=== PATIENT | male | born 1955 | race Caucasian/White ===

== ENCOUNTER → 2017-10-23 | Outpatient (CLI) | payer OTHER ==
[~2017-10-23] MED LIST: ASPIRIN 81M81 MG/TA2 PO; CARAFATE 1GM1 G PO; CELEXA10 MG PO; GLUCOPHAGE500 MG/TAB PO; HCTZ12.5TAB PO; NORFLEX 10100 MG/TAB PO; PROTONIX20 MG PO; TOPROL XL 25MG25 MG PO; XANAX 0.5MG0.5 MG PO; ZESTRIL30 MG PO
== END ==
LOC: COL.RAD 08:40
DX: M25.511 Pain in right shoulder (principal)
CPT/HCPCS: A9585; Q9967

== ENCOUNTER 2017-12-07 09:36 | Emergency (ER) | payer OTHER ==
[~2017-12-07] VITALS: Ht 190.5 cm; Wt 150.0 kg
[2017-12-07 09:39] VITALS: PULSE 100; TEMP 98.1
[2017-12-07 11:05] LABS: BASO # 0.1 (0.0-0.2); BASO % 0.8 % (0.0-2.0); EOS # 0.1 (0.0-0.7); EOS % 1.4 % (0-4.0); GRAN # 4.6 (1.4-6.5); HEMATOCRIT 48.4 % (42.0-52.0); HEMOGLOBIN 16.4 g/dl (13.5-18.0); LYMPH # 1.9 (1.2-3.4); LYMPH % 26.7 % (20.0-51.0); MEAN CELL VOLUME 89 fl (80.0-100.0); MEAN CORPUSCULAR HEMOGLOBIN 30 pg (27.0-31.0); MEAN CORPUSCULAR HGB CONC 34 g/dl (33.0-37.0); MEAN PLATELET VOLUME 9.6 fl (7.4-10.4); MONO # 0.5 (0.1-0.6); MONO % 6.8 % (1.7-9.3); PLATELET COUNT 202 K/mm3 (130-400); RED BLOOD COUNT 5.43 M/mm3 (4.20-5.60); REDCELL DISTRIBUTION WIDTH-CV 12.7 % (11.5-14.5)
[2017-12-07 11:14] LABS: ALBUMIN 4.4 gm/dL (3.5-5.0); BILIRUBIN,TOTAL 1.8 mg/dL (0.0-1.0); CALCIUM 9.3 mg/dL (8.4-10.2); CREATININE, serum 0.93 mg/dL (0.66-1.25); POTASSIUM 4.3 mmol/L (3.4-5.0)
[2017-12-07 11:26] VITALS: BP 124/78
== END 2017-12-07 11:47 | disposition home or self-care (01) ==
LOC: COL.ER 09:36
PROVIDERS: Physician Assistant
DX: E11.9 Type 2 diabetes mellitus without complications (principal); I10 Essential (primary) hypertension; F41.9 Anxiety disorder, unspecified; F32.9 Major depressive disorder, single episode, unspecified; Z79.84 Long term (current) use of oral hypoglycemic drugs

== ENCOUNTER 2017-12-13 09:12 | Outpatient (RCR) | payer OTHER | END 2017-12-13 11:38 | disposition home or self-care (01) | LOC: WSOH 09:12 | DX: M75.111 Incomplete rotator cuff tear or rupture of right shoulder, not specified as traumatic (principal); Z79.84 Long term (current) use of oral hypoglycemic drugs; W10.9XXA Fall (on) (from) unspecified stairs and steps, initial encounter; Y99.0 Civilian activity done for income or pay | CPT/HCPCS: G0283-GP ==

== ENCOUNTER 2019-05-08 12:46 | Outpatient (RCR) | payer OTHER | END 2019-08-06 | disposition home or self-care (01) | LOC: WSOH | DX: T67.5XXA Heat exhaustion, unspecified, initial encounter (principal); Y92.59 Other trade areas as the place of occurrence of the external cause; Y99.0 Civilian activity done for income or pay; Z79.899 Other long term (current) drug therapy; Z87.891 Personal history of nicotine dependence; I10 Essential (primary) hypertension; E11.21 Type 2 diabetes mellitus with diabetic nephropathy; F32.9 Major depressive disorder, single episode, unspecified; K21.9 Gastro-esophageal reflux disease without esophagitis; Z79.82 Long term (current) use of aspirin; E11.9 Type 2 diabetes mellitus without complications; Z79.84 Long term (current) use of oral hypoglycemic drugs ==

== ENCOUNTER 2019-08-28 10:12 | Emergency (ER) | payer OTHER ==
[~2019-08-28] VITALS: Ht 190.5 cm; Wt 145.5 kg
[2019-08-28 10:43] LABS: BASO # 0.1 (0.0-0.2); BASO % 0.8 % (0.0-2.0); EOS # 0.3 (0.0-0.7); EOS % 2.2 % (0-4.0); GRAN # 5.8 (1.4-6.5); GRAN % 51.7 % (42.2-75.2); HEMATOCRIT 49.3 % (42.0-52.0); HEMOGLOBIN 16.5 g/dl (13.5-18.0); LYMPH # 4.2 (1.2-3.4); LYMPH % 37.4 % (20.0-51.0); MEAN CELL VOLUME 89 fl (80.0-100.0); MEAN CORPUSCULAR HEMOGLOBIN 30 pg (27.0-31.0); MEAN CORPUSCULAR HGB CONC 34 g/dl (33.0-37.0); MEAN PLATELET VOLUME 9.5 fl (7.4-10.4); MONO # 0.8 (0.1-0.6); MONO % 7.5 % (1.7-9.3); PLATELET COUNT 230 K/mm3 (130-400); RED BLOOD COUNT 5.56 M/mm3 (4.20-5.60); REDCELL DISTRIBUTION WIDTH-CV 12.8 % (11.5-14.5)
[2019-08-28 10:48] LABS: INR 1.1 (0.8-3.0); PROTHROMBIN TIME 13.3 SECONDS (9.7-12.8)
[2019-08-28 10:51] LABS: PARTIAL THROMBOPLASTIN TIME 32.8 SECONDS (26.0-37.0)
[2019-08-28 10:52] LABS: ALANINE AMINOTRANSFERASE 115 U/L (21-72); ALBUMIN 4.6 gm/dL (3.5-5.0); ALKALINE PHOSPHATASE 81 U/L (50-136); ANION GAP 10 mmol/L (7-16); AST,SGOT 83 U/L (15-37); BILIRUBIN,TOTAL 1.6 mg/dL (0.0-1.0); BLOOD UREA NITROGEN 15 mg/dL (9-20); CALCIUM 9.5 mg/dL (8.4-10.2); CARBON DIOXIDE 25 mmol/L (22-30); CHLORIDE 102 mmol/L (98-107); GLUCOSE 150 mg/dL (74-106); SODIUM 138 mmol/L (137-145); TOTAL PROTEIN 8.5 gm/dL (6.4-8.2)
[2019-08-28 11:05] LABS: TROPONIN-I < 0.012 ng/mL (0.000-0.035)
[2019-08-28] MEDS ORDERED: HCTZ 25MG TAB25 MG PO (12:55)
[2019-08-28] MEDS ORDERED: DULCOLAX STOOL100 MG PO (12:55)
[2019-08-28] MEDS ORDERED: PROSCAR 5MG5 MG PO (12:56)
[2019-08-28] MEDS ORDERED: PRAVACHOL 40MG40 MG PO (12:57)
[2019-08-28] MEDS ORDERED: GLUCOPHAGE500 MG/TAB PO (12:58)
[2019-08-28] MEDS ORDERED: PROAIR HFA0.09 MG/AC IH (12:59)
[2019-08-28] MEDS ORDERED: ASTELIN NASAL S34 ML NS (12:59)
[2019-08-28] MEDS ORDERED: PEPCID40 MG PO (13:00)
[2019-08-28 13:16] VITALS: BP 141/92; PULSE 101
== END 2019-08-28 13:30 | disposition home or self-care (01) ==
LOC: COL.ER 10:12
PROVIDERS: Family Medicine
DX: F41.9 Anxiety disorder, unspecified (principal); E11.9 Type 2 diabetes mellitus without complications; I10 Essential (primary) hypertension; Z79.82 Long term (current) use of aspirin; Z79.84 Long term (current) use of oral hypoglycemic drugs
CPT/HCPCS: J2060; J2405; J7030; Q9967

== ENCOUNTER 2020-02-19 09:27 | Emergency (ER) | payer OTHER ==
[~2020-02-19] VITALS: Ht 190.5 cm; Wt 145.5 kg
[~2020-02-19 09:27] MED LIST changes: +ASTELIN NASAL S34 ML NS; +DULCOLAX STOOL100 MG PO; +HCTZ 25MG TAB25 MG PO; +PEPCID40 MG PO; +PRAVACHOL 40MG40 MG PO; +PROAIR HFA0.09 MG/AC IH; +PROSCAR 5MG5 MG PO
[2020-02-19 09:38] VITALS: TEMP 98.2
[2020-02-19 09:56] LABS: BASO # 0.1 (0.0-0.2); BASO % 0.7 % (0.0-2.0); EOS # 0.2 (0.0-0.7); GRAN # 4.5 (1.4-6.5); GRAN % 50.3 % (42.2-75.2); HEMATOCRIT 47.9 % (42.0-52.0); HEMOGLOBIN 15.9 g/dl (13.5-18.0); LYMPH # 3.6 (1.2-3.4); LYMPH % 39.6 % (20.0-51.0); MEAN CELL VOLUME 87 fl (80.0-100.0); MEAN CORPUSCULAR HEMOGLOBIN 29 pg (27.0-31.0); MEAN CORPUSCULAR HGB CONC 33 g/dl (33.0-37.0); MEAN PLATELET VOLUME 9.8 fl (7.4-10.4); MONO # 0.6 (0.1-0.6); MONO % 7.1 % (1.7-9.3); PLATELET COUNT 233 K/mm3 (130-400); RED BLOOD COUNT 5.52 M/mm3 (4.20-5.60); REDCELL DISTRIBUTION WIDTH-CV 13.2 % (11.5-14.5)
[2020-02-19 10:05] LABS: ALANINE AMINOTRANSFERASE 78 U/L (4-49); ALBUMIN 4.5 gm/dL (3.5-5.0); ALKALINE PHOSPHATASE 68 U/L (50-136); ANION GAP 10 mmol/L (7-16); AST,SGOT 57 U/L (15-37); BILIRUBIN,TOTAL 1.8 mg/dL (0.0-1.0); BLOOD UREA NITROGEN 17 mg/dL (9-20); CALCIUM 9.6 mg/dL (8.4-10.2); CARBON DIOXIDE 25 mmol/L (22-30); CHLORIDE 102 mmol/L (98-107); CREATININE, serum 0.95 (0.66-1.25); GLUCOSE 161 mg/dL (74-106); SODIUM 137 mmol/L (137-145); TOTAL PROTEIN 8.2 gm/dL (6.4-8.2)
[2020-02-19 10:06] LABS: INR 1.1 (0.8-3.0); PROTHROMBIN TIME 12.9 SECONDS (9.7-12.8)
[2020-02-19 10:09] LABS: PARTIAL THROMBOPLASTIN TIME 32.7 SECONDS (26.0-37.0)
[2020-02-19 10:59] LABS: TROPONIN-I < 0.012 ng/mL (0.000-0.035)
[2020-02-19 13:30] VITALS: BP 125/70; PULSE 77
== END 2020-02-19 13:30 | disposition home or self-care (01) ==
LOC: COL.ER 09:27
PROVIDERS: Family Medicine
DX: F41.9 Anxiety disorder, unspecified (principal); R07.9 Chest pain, unspecified; I10 Essential (primary) hypertension; Z79.82 Long term (current) use of aspirin; Z79.84 Long term (current) use of oral hypoglycemic drugs
CPT/HCPCS: J2060

== ENCOUNTER 2020-09-08 14:46 | Emergency (ER) | payer OTHER ==
[~2020-09-08] VITALS: Ht 190.5 cm; Wt 150.0 kg
[2020-09-08 15:57] LABS: HEMOGLOBIN 17.6 g/dl (13.5-18.0); MEAN CELL VOLUME 86 fl (80.0-100.0); MEAN CORPUSCULAR HEMOGLOBIN 29 pg (27.0-31.0); MEAN CORPUSCULAR HGB CONC 34 g/dl (33.0-37.0); PLATELET COUNT 268 K/mm3 (130-400); RED BLOOD COUNT 6.05 M/mm3 (4.20-5.60); REDCELL DISTRIBUTION WIDTH-CV 13.1 % (11.5-14.5)
[2020-09-08 16:02] LABS: ALANINE AMINOTRANSFERASE 77 U/L (4-49); ALKALINE PHOSPHATASE 95 U/L (50-136); ANION GAP 13 mmol/L (7-16); AST,SGOT 93 U/L (15-37); BILIRUBIN,TOTAL 2.1 mg/dL (0.0-1.0); BLOOD UREA NITROGEN 15 mg/dL (9-20); CALCIUM 9.8 mg/dL (8.4-10.2); CARBON DIOXIDE 24 mmol/L (22-30); CHLORIDE 101 mmol/L (98-107); CREATININE, serum 0.97 (0.66-1.25); GLUCOSE 112 mg/dL (74-106); POTASSIUM 3.7 mmol/L (3.4-5.0); SODIUM 137 mmol/L (137-145); TOTAL PROTEIN 8.8 gm/dL (6.4-8.2)
[2020-09-08 16:19] LABS: HEMATOCRIT 52.1 % (42.0-52.0)
[2020-09-08 16:23] LABS: TROPONIN-I < 0.012 ng/mL (0.000-0.035)
[2020-09-08 17:13] LABS: EOSINOPHIL 2 % (0-4); LYMPHOCYTE 45 % (20.0-51.0); NEUTROPHILS 46 % (42.0-75.2)
[2020-09-08 17:18] LABS: PLATELET ESTIMATE NORMAL (NORMAL); TOXIC GRANULATION PRESENT
[2020-09-08 17:21] VITALS: BP 132/81; PULSE 94
== END 2020-09-08 17:15 | disposition home or self-care (01) ==
LOC: COL.ER 14:46
PROVIDERS: Nurse Practitioner
DX: I10 Essential (primary) hypertension (principal); Z98.61 Coronary angioplasty status; Z87.891 Personal history of nicotine dependence; Z79.82 Long term (current) use of aspirin; Z79.84 Long term (current) use of oral hypoglycemic drugs

== ENCOUNTER → 2020-10-21 | Outpatient (CLI) | payer OTHER | LOC: COL.RAD 07:16 | DX: K76.0 Fatty (change of) liver, not elsewhere classified (principal) ==

== ENCOUNTER → 2020-12-15 | Outpatient (CLI) | payer OTHER ==
[~2020-12-15] MED LIST changes: +CATAPRES 0.1MG0.1 MG PO; +INDERAL 20MG20 MG PO; +PRILOSEC 20MG20 MG PO; +PRINIVIL40 MG PO; +UBRELVY50 MG PO
== END ==
LOC: COL.RAD 06:54
DX: N20.0 Calculus of kidney (principal); K76.0 Fatty (change of) liver, not elsewhere classified; K57.30 Diverticulosis of large intestine without perforation or abscess without bleeding

== ENCOUNTER 2021-01-21 06:41 | Emergency (ER) | payer OTHER ==
[~2021-01-21] VITALS: Ht 193 cm; Wt 137.3 kg
[~2021-01-21 06:41] MED LIST changes: -CATAPRES 0.1MG0.1 MG PO; -INDERAL 20MG20 MG PO; -PRILOSEC 20MG20 MG PO; -PRINIVIL40 MG PO; -UBRELVY50 MG PO
[2021-01-21 06:45] VITALS: TEMP 97.4
[2021-01-21 06:57] LABS: COLLECTION METHOD CLEAN CATCH
[2021-01-21 07:03] LABS: MUCOUS Present /lpf; PH 5 (5-8); SQUAMOUS EPITHELIAL 0-2 /hpf; URINE APPEARANCE Clear; URINE BACTERIA None Seen /hpf; URINE BILIRUBIN Negative (NEGATIVE); URINE BLOOD Negative (NEGATIVE); URINE COLOR Yellow; URINE GLUCOSE Negative (NEGATIVE); URINE KETONE Negative (NEGATIVE); URINE LEUKOCYTE ESTERASE Negative (NEGATIVE); URINE NITRATE Negative (NEGATIVE); URINE PROTEIN(semi-quant) Negative (NEGATIVE); URINE RBC 0-2 /hpf; URINE UROBILINOGEN Negative (NEGATIVE)
[2021-01-21 07:07] LABS: BASO # 0.1 (0.0-0.2); BASO % 0.5 % (0.0-2.0); EOS # 0.1 (0.0-0.7); EOS % 1.3 % (0-4.0); GRAN # 3.9 (1.4-6.5); GRAN % 43.1 % (42.2-75.2); HEMOGLOBIN 17.1 g/dl (13.5-18.0); LYMPH # 4.4 (1.2-3.4); LYMPH % 47.7 % (20.0-51.0); MEAN CELL VOLUME 88 fl (80.0-100.0); MEAN CORPUSCULAR HEMOGLOBIN 29 pg (27.0-31.0); MEAN CORPUSCULAR HGB CONC 33 g/dl (33.0-37.0); MEAN PLATELET VOLUME 9.7 fl (7.4-10.4); MONO # 0.7 (0.1-0.6); MONO % 7.2 % (1.7-9.3); PLATELET COUNT 209 K/mm3 (130-400); RED BLOOD COUNT 5.91 M/mm3 (4.20-5.60)
[2021-01-21 07:08] LABS: HEMATOCRIT 52.1 % (42.0-52.0)
[2021-01-21 07:17] LABS: ALBUMIN 4.5 gm/dL (3.5-5.0); BILIRUBIN,TOTAL 1.7 mg/dL (0.0-1.0); CALCIUM 9.6 mg/dL (8.4-10.2); CREATININE, serum 1.14 (0.66-1.25); POTASSIUM 4.1 mmol/L (3.4-5.0); TOTAL PROTEIN 8.6 gm/dL (6.4-8.2)
[2021-01-21 09:00] VITALS: BP 137/89; PULSE 87
== END 2021-01-21 09:18 | disposition home or self-care (01) ==
LOC: COL.ER 06:41
PROVIDERS: Emergency Medicine
DX: M54.9 Dorsalgia, unspecified (principal); I10 Essential (primary) hypertension; R10.9 Unspecified abdominal pain; R11.0 Nausea; Z87.442 Personal history of urinary calculi; Z79.82 Long term (current) use of aspirin; Z79.84 Long term (current) use of oral hypoglycemic drugs
CPT/HCPCS: J2270; J2405; Q9967

== ENCOUNTER 2021-01-27 15:10 | Observation (INO) | payer OTHER ==
[~2021-01-27] VITALS: Ht 193.1 cm; Wt 131.0 kg
[2021-01-27 15:34] VITALS: BP 112/77; PULSE 71; TEMP 97.5
[2021-01-27] MEDS ORDERED: CATAPRES 0.1MG0.1 MG PO (15:41)
[2021-01-27] MEDS ORDERED: PRINIVIL40 MG PO (15:43)
--- NOTE | 2021-01-27 15:45 | NUR ---
PT ARRIVED TO FLOOR, VITAL SIGNS OBTAINED, PT AOX4, PT PLEASANT, DENIES CHEST PAIN AT THIS TIME, REPORTS HE HAS "EPISODES" OF CHEST PAIN WITH ELEVATED BLOOD PRESSURE. HE STATES "I ALSO GET SUPER DIZZY AND IT FEELS LIKE MY HEAD IS GOING TO EXPLODE". PT STATED HE TOOK MULTIPLE DOSES OF CLONIDINE TODAY AND A BETA BASILIA. PT BP IS WITHIN NORMAL LIMITS AT THIS TIME. CALL LIGHT TAKEN INTO ROOM.
[2021-01-27] MEDS ORDERED: GLUCOPHAGE500 MG/TAB PO (16:58)
[2021-01-27] MEDS ORDERED: INDERAL 20MG20 MG PO (17:00)
[2021-01-27] MEDS ORDERED: UBRELVY50 MG PO (17:01)
[2021-01-27] MEDS ORDERED: PRILOSEC 20MG20 MG PO (17:01)
[2021-01-27 17:46] VITALS: BP 123/75; PULSE 64
[2021-01-27 17:56] LABS: BASO # 0.1 (0.0-0.2); BASO % 0.5 % (0.0-2.0); EOS # 0.2 (0.0-0.7); EOS % 1.4 % (0-4.0); GRAN # 5.2 (1.4-6.5); HEMATOCRIT 50.8 % (42.0-52.0); HEMOGLOBIN 16.6 g/dl (13.5-18.0); LYMPH # 4.7 (1.2-3.4); LYMPH % 43.6 % (20.0-51.0); MEAN CELL VOLUME 90 fl (80.0-100.0); MEAN CORPUSCULAR HEMOGLOBIN 29 pg (27.0-31.0); MEAN CORPUSCULAR HGB CONC 33 g/dl (33.0-37.0); MEAN PLATELET VOLUME 9.8 fl (7.4-10.4); MONO # 0.7 (0.1-0.6); MONO % 6.3 % (1.7-9.3); PLATELET COUNT 219 K/mm3 (130-400); RED BLOOD COUNT 5.67 M/mm3 (4.20-5.60); REDCELL DISTRIBUTION WIDTH-CV 13.2 % (11.5-14.5)
[2021-01-27 17:59] VITALS: BP 111/77; PULSE 62
[2021-01-27 18:02] LABS: INR 1.2 (0.8-3.0); PROTHROMBIN TIME 13.7 SECONDS (9.7-12.8)
[2021-01-27 18:06] LABS: ALANINE AMINOTRANSFERASE 70 U/L (4-49); ALBUMIN 4.5 gm/dL (3.5-5.0); ALKALINE PHOSPHATASE 66 U/L (50-136); ANION GAP 8 mmol/L (7-16); AST,SGOT 49 U/L (15-37); BILIRUBIN,TOTAL 1.2 mg/dL (0.0-1.0); BLOOD UREA NITROGEN 16 mg/dL (9-20); CALCIUM 9.4 mg/dL (8.4-10.2); CARBON DIOXIDE 28 mmol/L (22-30); CHLORIDE 100 mmol/L (98-107); CREATININE, serum 1.07 (0.66-1.25); GLUCOSE 95 mg/dL (74-106); MAGNESIUM 2.1 mg/dL (1.6-2.3); POTASSIUM 4.1 mmol/L (3.4-5.0); SODIUM 136 mmol/L (137-145); TOTAL PROTEIN 8.5 gm/dL (6.4-8.2)
--- NOTE | 2021-01-27 18:14 | NUR ---
Pt. sitting in bed with at bedside.Pt states he is currently not experiencing chest pain.Pt. placed on interval B/P monitoring, tele monitoring, Nurse placed 20G IV on right a/c,conducted medication rec. nurse informed patient of possible stress test tomorrow morning (01/28/2021) and provided necessary relevant education. Pt. expressses no further needs. Call light within reach. Informed pt. to call if he needs to transfer.
[2021-01-27 18:23] LABS: TROPONIN-I < 0.012 ng/mL (0.000-0.035)
--- NOTE | 2021-01-27 19:03 | NUR ---
Received report from Anastasiia. Patient awake in bed, at bedside.
[2021-01-27 20:52] VITALS: BP 98/53; PULSE 64; TEMP 97.8
--- NOTE | 2021-01-27 21:05 | NUR ---
Assesment done. Patient is alert and oriented. He is on room air. Instructed him that he is NPO by midnight for his procedure in the morning. He verbalizes understanding. He reports having pain of 3/10 on his left shoulder blade. He do have indigestion and states he needs Xanax for his anxiety. Maalox, Flexeril and Xanax were given.
[2021-01-28] VITALS (15 sets, daily range): BP systolic 91–143; BP diastolic 61–80; PULSE 59–141; TEMP 97.6–98.2
--- NOTE | 2021-01-28 02:37 | NUR ---
Patient called saying he usually use CPAP at night and now he's having a hard time sleeping. He complains of having dry mouth due to being on NPO. Provided oral swab to help with dry mouth. Placed O2 at 2lpm to use while asleep since there's no CPAP. Informed RT.
[2021-01-28 06:11] LABS: CHOLESTEROL 118 mg/dL (120-200); CHOLESTEROL RISK RATIO 4.5; HDL CHOLESTEROL 26 mg/dL; LDL CHOLESTEROL 69 mg/dL; TRIGLYCERIDE 116 mg/dL
[2021-01-28 06:20] LABS: TROPONIN-I < 0.012 ng/mL (0.000-0.035)
--- NOTE | 2021-01-28 06:34 | NUR ---
CPAP was provided to patient. He had episodes of soft blood pressure. Latest blood pressure is 120/72. He was complaining of headache this morning. Tylenol was given.
--- NOTE | 2021-01-28 08:20 | NUR ---
PT PLEASANT, REPORTED NOT SLEEPING WELL DUE TO "WAKING UP EVERY 30 MINUTES FEELING LIKE I COULDN'T BREATH". PT NORMALLY WEARS CPAP AT HOME FOR SLEEP APNEA, CPAP BROUGHT TO ROOM AROUND 4AM. PT HAD SOFT PRESSURES IN THE NIGHT, ISSUE HAS RESOLVED. PT AOX4, REPORTS SOME SHOULDER BLADE DISCOMFORT 2/10, REPORTS HE'D NORMALLY TAKE A MUSCLE RELAXER BUT REFUSED THE FLEXERIL OFFERED. PT REPORTS HEADACHE 4/10 THAT HAD NOT RESOLVED WITH TYLENOL. TELE ON PT, CALL LIGHT WITHIN REACH, PT REFUSED NASAL SPRAY DUE TO "FEELING LIKE MY SINUSES ARE FINE TODAY". EDUCATED HIM TO NOTIFY NURSING STAFF IF CHEST PAIN DEVELOPS. PT USING URINAL AT BEDSIDE, NO OTHER NEEDS.
--- NOTE | 2021-01-28 08:54 | NUR ---
PT TAKEN DOWN FOR STRESS TEST
--- NOTE | 2021-01-28 10:59 | NUR ---
PT RETURNED FROM [facility] [address] ON PT, PT TEARFUL ABOUT HIS MOTHER'S RECENT PASSING, PT NOT REPORTING CHEST PAIN AT THIS TIME.
--- NOTE | 2021-01-28 13:45 | NUR ---
PT USED CALL LIGHT TO REPORT L ARM SHARP PAIN 4/10 AND PT HAS HEAD POUNDING AND DIZZINESS. VITALS TAKEN AND WITHIN NORMAL LIMITS.
--- NOTE | 2021-01-28 13:59 | NUR ---
DR ARREOLA NOTIFIED OF PT SYMPTOMS, STILL OK WITH DISCHARGE. GAVE PT A XANAX, WILL REASSESS SITUATION, NOTIFIED PT TO NOTIFY STAFF IF SYMPTOMS WORSEN.
--- NOTE | 2021-01-28 14:13 | NUR ---
RECIEVED CALL FROM TELEMETRY SAYING PT HR INC INTO 130'S. ENTERED PT ROOM AND PT WAS MOVING TO GET INTO THE CHAIR. HE SAID HEADACHE IS RESOLVING AND SO IS SHOULDER PAIN. HR 120/76 AND HR WAS 114 AT TIME OF VITALS.
--- NOTE | 2021-01-28 15:13 | NUR ---
Pt. discharge processed. Pt. Iv line DC'd, education and discharge instructions provided. Patient understands instruction. Pt. transferred to vehicle by nurse.
== END 2021-01-28 15:15 | disposition home or self-care (01) ==
LOC: MEDICAL 15:10
PROVIDERS: Physician Assistant; ADMIT Family Medicine
DX: R07.9 Chest pain, unspecified (principal); I10 Essential (primary) hypertension; E11.9 Type 2 diabetes mellitus without complications; K21.9 Gastro-esophageal reflux disease without esophagitis; E78.5 Hyperlipidemia, unspecified; M19.90 Unspecified osteoarthritis, unspecified site; G43.909 Migraine, unspecified, not intractable, without status migrainosus; G89.29 Other chronic pain; K40.90 Unilateral inguinal hernia, without obstruction or gangrene, not specified as recurrent; N20.0 Calculus of kidney; F41.9 Anxiety disorder, unspecified; Z79.84 Long term (current) use of oral hypoglycemic drugs; Z79.899 Other long term (current) drug therapy; Z90.89 Acquired absence of other organs; Z79.82 Long term (current) use of aspirin; Z87.891 Personal history of nicotine dependence
CPT/HCPCS: A9500; G0378; J1650; J1815; J2785

== ENCOUNTER 2021-04-11 11:08 | Emergency (ER) | payer OTHER ==
[~2021-04-11] VITALS: Ht 190.5 cm; Wt 135.0 kg
[~2021-04-11 11:08] MED LIST changes: +CATAPRES 0.1MG0.1 MG PO; +INDERAL 20MG20 MG PO; +PRILOSEC 20MG20 MG PO; +PRINIVIL40 MG PO; +UBRELVY50 MG PO
[2021-04-11 11:12] VITALS: TEMP 98.3
[2021-04-11 12:04] LABS: HEMATOCRIT 50.6 % (42.0-52.0); MEAN CELL VOLUME 88 fl (80.0-100.0); MEAN CORPUSCULAR HEMOGLOBIN 30 pg (27.0-31.0); MEAN CORPUSCULAR HGB CONC 34 g/dl (33.0-37.0); PLATELET COUNT 251 K/mm3 (130-400); RED BLOOD COUNT 5.74 M/mm3 (4.20-5.60); REDCELL DISTRIBUTION WIDTH-CV 13.2 % (11.5-14.5)
[2021-04-11 12:07] LABS: INR 1.2 (0.8-3.0); PROTHROMBIN TIME 13.3 SECONDS (9.7-12.8)
[2021-04-11 12:12] LABS: ALANINE AMINOTRANSFERASE 52 U/L (4-49); ALBUMIN 4.5 gm/dL (3.5-5.0); ALKALINE PHOSPHATASE 65 U/L (50-136); ANION GAP 8 mmol/L (7-16); AST,SGOT 48 U/L (15-37); BILIRUBIN,TOTAL 1.6 mg/dL (0.0-1.0); BLOOD UREA NITROGEN 13 mg/dL (9-20); CALCIUM 9.4 mg/dL (8.4-10.2); CARBON DIOXIDE 28 mmol/L (22-30); CHLORIDE 104 mmol/L (98-107); GLUCOSE 105 mg/dL (74-106); POTASSIUM 4.2 mmol/L (3.4-5.0); SODIUM 140 mmol/L (137-145); TOTAL PROTEIN 8.1 gm/dL (6.4-8.2)
[2021-04-11 12:14] LABS: C-REACTIVE PROTEIN < 0.5 mg/dL (0.0-0.9)
[2021-04-11 12:17] LABS: BAND 10 % (0-10); LYMPHOCYTE 32 % (20.0-51.0); NEUTROPHILS 50 % (42.0-75.2); PLATELET ESTIMATE NORMAL (NORMAL)
[2021-04-11 12:25] LABS: COLLECTION METHOD CLEAN CATCH
[2021-04-11 12:32] LABS: MUCOUS Present /lpf; PH 5 (5-8); SQUAMOUS EPITHELIAL 0-2 /hpf; URINE APPEARANCE Clear; URINE BACTERIA None Seen /hpf; URINE BILIRUBIN Negative (NEGATIVE); URINE BLOOD Negative (NEGATIVE); URINE COLOR Yellow; URINE GLUCOSE Negative (NEGATIVE); URINE KETONE Negative (NEGATIVE); URINE LEUKOCYTE ESTERASE Negative (NEGATIVE); URINE NITRATE Negative (NEGATIVE); URINE PROTEIN(semi-quant) Negative (NEGATIVE); URINE RBC 0-2 /hpf
[2021-04-11 12:41] LABS: TROPONIN-I < 0.012 ng/mL (0.000-0.035)
[2021-04-11 14:23] VITALS: BP 119/79
[2021-04-11 14:35] VITALS: PULSE 70
== END 2021-04-11 14:36 | disposition home or self-care (01) ==
LOC: COL.ER 11:08
PROVIDERS: Emergency Medicine
DX: I10 Essential (primary) hypertension (principal); F41.9 Anxiety disorder, unspecified; F43.10 Post-traumatic stress disorder, unspecified; Z98.61 Coronary angioplasty status; Z87.891 Personal history of nicotine dependence; Z79.899 Other long term (current) drug therapy
CPT/HCPCS: J2060

== ENCOUNTER 2021-07-20 14:05 | Emergency (ER) | payer OTHER ==
[~2021-07-20] VITALS: Ht 190.5 cm; Wt 135.9 kg
[2021-07-20 14:17] VITALS: TEMP 98.2
[2021-07-20 14:40] LABS: BASO # 0.1 (0.0-0.2); BASO % 0.5 % (0.0-2.0); EOS # 0.1 (0.0-0.7); EOS % 1.1 % (0-4.0); GRAN # 4.2 (1.4-6.5); GRAN % 42.3 % (42.2-75.2); HEMATOCRIT 50.8 % (42.0-52.0); LYMPH # 4.9 (1.2-3.4); LYMPH % 50.3 % (20.0-51.0); MEAN CELL VOLUME 88 fl (80.0-100.0); MEAN CORPUSCULAR HEMOGLOBIN 29 pg (27.0-31.0); MEAN CORPUSCULAR HGB CONC 34 g/dl (33.0-37.0); MEAN PLATELET VOLUME 9.7 fl (7.4-10.4); MONO # 0.6 (0.1-0.6); MONO % 5.6 % (1.7-9.3); PLATELET COUNT 190 K/mm3 (130-400); RED BLOOD COUNT 5.79 M/mm3 (4.20-5.60); REDCELL DISTRIBUTION WIDTH-CV 13.4 % (11.5-14.5)
[2021-07-20 15:07] LABS: ALANINE AMINOTRANSFERASE 45 U/L (0-55); ALBUMIN 4.2 gm/dL (3.4-4.8); ALKALINE PHOSPHATASE 67 U/L (0-750); ANION GAP 11 mmol/L; AST,SGOT 37 U/L (5-34); BILIRUBIN,TOTAL 2.1 mg/dL (0.2-1.2); BLOOD UREA NITROGEN 14 mg/dL (8-26); CALCIUM 9.4 mg/dL (8.4-10.2); CARBON DIOXIDE 22 mEq/L (23-31); CHLORIDE 105 mmol/L (98-107); CREATININE, serum 0.98 mg/dL (0.72-1.25); GLUCOSE 127 mg/dL (70-99); POTASSIUM 4.2 mmol/L (3.5-4.5); SODIUM 138 mmol/L (136-145); TOTAL PROTEIN 8.2 gm/dL (6.2-8.1)
[2021-07-20 15:14] LABS: TROPONIN-I < 0.010 ng/mL (0.00-0.033)
[2021-07-20 15:55] VITALS: BP 105/48; PULSE 76
== END 2021-07-20 16:00 | disposition home or self-care (01) ==
LOC: COL.ER 14:05
PROVIDERS: Personal Emergency Response Attendant
DX: F41.9 Anxiety disorder, unspecified (principal); I10 Essential (primary) hypertension; R79.89 Other specified abnormal findings of blood chemistry; G43.909 Migraine, unspecified, not intractable, without status migrainosus; Z79.899 Other long term (current) drug therapy
CPT/HCPCS: J2060

== ENCOUNTER 2021-08-30 14:02 | Outpatient (RCR) | payer OTHER | END 2021-10-21 | disposition home or self-care (01) | LOC: WSOH | DX: M25.562 Pain in left knee (principal); M54.50 Low back pain, unspecified; I10 Essential (primary) hypertension; E78.00 Pure hypercholesterolemia, unspecified; F41.8 Other specified anxiety disorders; K21.9 Gastro-esophageal reflux disease without esophagitis; G20 Parkinson's disease; E11.40 Type 2 diabetes mellitus with diabetic neuropathy, unspecified; Z87.891 Personal history of nicotine dependence; Z98.890 Other specified postprocedural states; Y99.0 Civilian activity done for income or pay ==

== ENCOUNTER 2021-12-28 10:30 | Emergency (ER) | payer OTHER ==
[~2021-12-28] VITALS: Ht 190.5 cm; Wt 140.9 kg
[2021-12-28 10:37] VITALS: TEMP 98.4
[2021-12-28 11:20] LABS: HEMATOCRIT 50.7 % (42.0-52.0); HEMOGLOBIN 17.1 g/dl (13.5-18.0); MEAN CELL VOLUME 88 fl (80.0-100.0); MEAN CORPUSCULAR HEMOGLOBIN 30 pg (27-31); MEAN CORPUSCULAR HGB CONC 34 g/dl (33.0-37.0); PLATELET COUNT 234 K/mm3 (130-400); RED BLOOD COUNT 5.75 M/mm3 (4.20-5.60); REDCELL DISTRIBUTION WIDTH-CV 13.7 % (11.5-14.5)
[2021-12-28 11:33] LABS: ALANINE AMINOTRANSFERASE 65 U/L (0-55); ALBUMIN 4.4 gm/dL (3.4-4.8); ALKALINE PHOSPHATASE 66 U/L (40-150); ANION GAP 11 mmol/L (7-16); AST,SGOT 40 U/L (5-34); BILIRUBIN,TOTAL 2.2 mg/dL (0.2-1.2); BLOOD UREA NITROGEN 15 mg/dL (8-26); CALCIUM 9.1 mg/dL (8.4-10.2); CARBON DIOXIDE 27 mmol/L (23-31); CHLORIDE 102 mmol/L (98-107); CREATININE, serum 1.06 mg/dL (0.72-1.25); GLUCOSE 103 mg/dL (70-99); POTASSIUM 3.6 mmol/L (3.5-4.5); SODIUM 140 mmol/L (136-145); TOTAL PROTEIN 7.7 gm/dL (6.2-8.1)
[2021-12-28 11:41] LABS: TROPONIN-I < 0.010 ng/mL (0.00-0.033)
[2021-12-28 11:51] LABS: LYMPHOCYTE 48 % (20.0-51.0); NEUTROPHILS 48 % (42.0-75.2); PLATELET ESTIMATE NORMAL (NORMAL)
[2021-12-28 12:13] VITALS: BP 118/75; PULSE 76
== END 2021-12-28 12:14 | disposition home or self-care (01) ==
LOC: COL.ER 10:30
PROVIDERS: Personal Emergency Response Attendant
DX: I10 Essential (primary) hypertension (principal); Z98.61 Coronary angioplasty status; Z87.891 Personal history of nicotine dependence; Z79.899 Other long term (current) drug therapy
CPT/HCPCS: J2060; J7030

== ENCOUNTER 2022-01-05 12:32 | Emergency (ER) | payer OTHER ==
[~2022-01-05] VITALS: Ht 190.5 cm; Wt 138.6 kg
[2022-01-05 12:40] VITALS: TEMP 97.9
[2022-01-05 13:02] LABS: HEMATOCRIT 48.9 % (42.0-52.0); HEMOGLOBIN 16.7 g/dl (13.5-18.0); MEAN CELL VOLUME 86 fl (80.0-100.0); MEAN CORPUSCULAR HEMOGLOBIN 30 pg (27-31); MEAN CORPUSCULAR HGB CONC 34 g/dl (33.0-37.0); MEAN PLATELET VOLUME 9.5 fl (7.4-10.4); PLATELET COUNT 196 K/mm3 (130-400); RED BLOOD COUNT 5.66 M/mm3 (4.20-5.60); REDCELL DISTRIBUTION WIDTH-CV 13.4 % (11.5-14.5)
[2022-01-05 13:16] LABS: ALANINE AMINOTRANSFERASE 50 U/L (0-55); ALBUMIN 4.1 gm/dL (3.4-4.8); ALKALINE PHOSPHATASE 62 U/L (40-150); ANION GAP 13 mmol/L (7-16); AST,SGOT 28 U/L (5-34); BILIRUBIN,TOTAL 1.9 mg/dL (0.2-1.2); BLOOD UREA NITROGEN 14 mg/dL (8-26); CALCIUM 8.9 mg/dL (8.4-10.2); CARBON DIOXIDE 19 mmol/L (23-31); CHLORIDE 104 mmol/L (98-107); CREATININE, serum 0.99 mg/dL (0.72-1.25); GLUCOSE 146 mg/dL (70-99); POTASSIUM 3.7 mmol/L (3.5-4.5); SODIUM 136 mmol/L (136-145); TOTAL PROTEIN 7.3 gm/dL (6.2-8.1)
[2022-01-05 13:23] LABS: TROPONIN-I < 0.010 ng/mL (0.00-0.033)
[2022-01-05 13:39] LABS: BAND 2 % (0-10); EOSINOPHIL 2 % (0-4); LYMPHOCYTE 43 % (20.0-51.0); NEUTROPHILS 46 % (42.0-75.2); PLATELET ESTIMATE NORMAL (NORMAL)
[2022-01-05 13:45] VITALS: BP 133/78; PULSE 80
== END 2022-01-05 13:54 | disposition home or self-care (01) ==
LOC: COL.ER 12:32
PROVIDERS: Emergency Medicine
DX: R06.02 Shortness of breath (principal); R10.12 Left upper quadrant pain; F41.9 Anxiety disorder, unspecified; Z79.899 Other long term (current) drug therapy

== ENCOUNTER → 2022-01-27 | Outpatient (CLI) | payer OTHER | LOC: COL.RAD 12:29 | DX: K57.30 Diverticulosis of large intestine without perforation or abscess without bleeding (principal); J43.9 Emphysema, unspecified; J84.10 Pulmonary fibrosis, unspecified; I70.1 Atherosclerosis of renal artery; I10 Essential (primary) hypertension | CPT/HCPCS: Q9967 ==

== ENCOUNTER → 2022-02-17 | Outpatient (CLI) | payer OTHER | LOC: COL.PUL 07:59 | DX: J43.9 Emphysema, unspecified (principal); F17.201 Nicotine dependence, unspecified, in remission ==